=== PATIENT | female | born 1955 | race Caucasian/White ===

== ENCOUNTER 2016-09-28 05:23 | Inpatient (IN) | payer OTHER ==
[2016-09-28] VITALS (28 sets, daily range): BP systolic 113–160; BP diastolic 59–85; PULSE 68–90; RESP 15–22; Ht 157.5 cm; Wt 81.1 kg
[~2016-09-28] VITALS: Ht 157.5 cm; Wt 81.1 kg
[~2016-09-28 05:23] MED LIST: ARTHRITIS MED PO; CALC500T12 PO; CHOLESTEROL MED PO; OMEP40CA6 PO
[2016-09-28] MEDS ORDERED: CEFAZOLIN 2 GM/50 ML (PMX) 50 ML IVPB ONE (05:30)
[2016-09-28] MEDS ORDERED: LACTATED RINGER'S 1,000 ML IV* SCH (05:30)
[2016-09-28] MEDS ORDERED: POLYMYXIN/BACITRACIN 1L IRRIG ONE (06:50)
[2016-09-28] MEDS ORDERED: FLORICET (07:20)
[2016-09-28] MEDS ORDERED: RANI300T PO (07:20)
[2016-09-28] MEDS ORDERED: SIMV20TA PO (07:20)
[2016-09-28] MEDS ORDERED: CETI10TA34 PO (07:20)
[2016-09-28] MEDS ORDERED: CLINDAMYCIN 2% 40 GM VAG CR VAG SCH (07:30)
[2016-09-28] MEDS ORDERED: MIDAZOLAM 1 MG/ML 2 ML INJ ONE (07:38)
[2016-09-28] MEDS ORDERED: morphine SULFATE/PF (10 MG/10 ML) INJ ONE (07:38)
--- NOTE | 2016-09-28 07:50 | HPN ---
Date/Time of Note Date/Time of Note DATE: 09/28/16 TIME: 07:50 Interval H&P Admission Note Pt. seen H&P reviewed: No system changes KOJO GUPTA MD Sep 28, 2016 07:50
[2016-09-28] MEDS ORDERED: PHENYLephrine (100 MCG/ML) 5ML SYG ONE (08:06)
[2016-09-28] MEDS ORDERED: ONDANSETRON 4 MG INJ IV PRN ×2 (09:00→16:30)
[2016-09-28] MEDS ORDERED: MEPERIDINE 25 MG INJ IV PRN (09:00)
[2016-09-28] MEDS ORDERED: DIPHENHYDRAMINE 50 MG INJ IV PRN (09:00)
[2016-09-28] MEDS ORDERED: HYDROmorphONE (0.2 MG/ML) 10ML SYG IV PRN (09:00)
[2016-09-28] MEDS ORDERED: FENTAnyl 50 MCG/ML VIAL IV PRN (09:00)
[2016-09-28] MEDS ORDERED: LIDOCAINE 2%/EPI MPF (SDV) 20 ML VIAL INJ ONE (09:31)
[2016-09-28] MEDS ORDERED: ETOMIDATE 20 MG INJ ONE (10:11)
[2016-09-28] MEDS ORDERED: ROCURONIUM 50 MG INJ ONE (10:11)
[2016-09-28] MEDS ORDERED: LIDOCAINE 2% (SDV) 5 ML INJ ONE (10:11)
[2016-09-28] MEDS ORDERED: NEOSTIGMINE 3 MG/3 ML SYRINGE ONE (10:11)
[2016-09-28] MEDS ORDERED: CEFAZOLIN 1 GM INJ ONE (10:11)
[2016-09-28] MEDS ORDERED: GLYCOPYRROLATE 0.4 MG INJ ONE (10:11)
--- NOTE | 2016-09-28 10:23 | HP ---
Date/Time of Note Date/Time of Note DATE: 09/28/16 TIME: 07:59 Assessment/Plan VTE Prophylaxis VTE Prophylaxis Intervention: ambulation Lines/Catheters IV Catheter Type (from Nrsg): Peripheral IV Assessment/Plan Chief Complaint/Hosp Course uterine prolapse cystocele uterine fibroids Problems: Assessment/Plan vaginal hysterectomy anterioe repair poss christos bso HPI/ROS Admit Date/Time Admit Date/Time Sep 28, 2016 at 05:23 Hx of Present Illness 59 y.o who was admitted for vaginal hysterectomy and anterior repair for uterine prolapse and cystocele. menopaused since 2011, also diagnosed to have also uterine fibroids which was shown on recnt u/s on july this year. also informed patient that there is possibility that abdominal procedure in case of problem to perform through vagianl approach. risks and benifit in detail from minor to serious complications were informed , agreed to receive the surgical intervention ROS presuure symptoms on lower abdomen PMH/Family/Social Past Medical History Medical History: no pertinent history Past Surgical History Past Surgical Hx: no surgical history Social History Smoking Status: Never smoker Drug Use: none Exam/Review of Systems Vital Signs Vitals Vital Signs Date Time Temp Pulse Resp B/P Pulse Ox O2 Delivery O2 Flow Rate FiO2 09/28/16 07:21 97.5 72 18 127/85 98 Room Air Exam Exam uterine prolapse cystocele Medications Medications Current Medications Lactated Ringer's (Lr) 1,000 ml @ 125 mls/hr Q8H IV* ; Start 09/28/16 at 05:30 ; Stop 09/28/16 at 13:29 KOJO GUPTA MD Sep 28, 2016 08:09
[2016-09-28] MEDS: HYDROmorphONE (0.2 MG/ML) 10ML SYG IV PRN ×2 (12:52→13:09)
[2016-09-28] MEDS ORDERED: METOCLOPRAMIDE 10 MG INJ ONE (13:51)
[2016-09-28] MEDS ORDERED: METOCLOPRAMIDE 10 MG INJ IV PRN ×2 (14:00→21:00)
[2016-09-28] MEDS: IBUPROFEN 600 MG TAB PO PRN (16:39)
[2016-09-28] MEDS: DEXTROSE 5%-LR 1,000 ML IV SCH (16:48)
[2016-09-28] MEDS: DOCUSATE SODIUM 100 MG CAP PO SCH (21:00)
[2016-09-28] MEDS: OXYCODONE/ACETAMINOPHEN (5/325) TAB PO PRN (21:21)
[2016-09-29] MEDS: DEXTROSE 5%-LR 1,000 ML IV SCH ×4 (00:55→18:52)
[2016-09-29] MEDS: IBUPROFEN 600 MG TAB PO PRN ×3 (00:57→21:13)
[2016-09-29 01:03] VITALS: BP 129/63; PULSE 74
[2016-09-29 06:18] LABS: ADD SCAN DIFF NO
[2016-09-29 06:31] LABS: BASOPHILS % 0.1 % (0.0-2.0); EOSINOPHILS # 0.1 10^3/ul (0.0-0.5); EOSINOPHILS % 0.4 % (0.0-7.0); HEMOGLOBIN 12.5 g/dl (12.0-16.0); LYMPHOCYTES # 1.2 10^3/ul (0.8-2.9); LYMPHOCYTES % 10.6 % (15.0-51.0); MEAN CORPUSCULAR HEMOGLOBIN 30.1 pg (29.0-33.0); MEAN CORPUSCULAR HGB CONC 35.7 g/dl (32.0-37.0); MEAN CORPUSCULAR VOLUME 84.3 fl (82.0-101.0); MEAN PLATELET VOLUME 8.7 fl (7.4-10.4); MONOCYTE # 0.6 10^3/ul (0.3-0.9); MONOCYTES % 5.4 % (0.0-11.0); NEUTROPHIL # 9.5 10^3/ul (1.6-7.5); NEUTROPHILS % 83.2 % (39.0-77.0); PLATELET COUNT 202 10^3/UL (140-415); RED BLOOD COUNT 4.15 10^6/ul (4.20-5.40); RED CELL DISTRIBUTION WIDTH 12.1 % (11.5-14.5); WHITE BLOOD COUNT 11.5 10^3/ul (4.8-10.8)
[2016-09-29 07:35] VITALS: BP 127/61; RESP 19
[2016-09-29] MEDS: DOCUSATE SODIUM 100 MG CAP PO SCH ×2 (08:41→21:13)
[2016-09-29] MEDS: OXYCODONE/ACETAMINOPHEN (5/325) TAB PO PRN ×2 (08:41→18:53)
--- NOTE | 2016-09-29 09:59 | PN ---
Date/Time of Note Date/Time of Note DATE: 09/29/16 TIME: 09:55 Assessment/Plan Lines/Catheters IV Catheter Type (from Nrs): Peripheral IV Mccracken in Place (from Nrs): Yes Assessment/Plan Chief Complaint/Hosp Course uterine prolapse cystocele uterine fibroids Problems: Subjective 24 Hr Interval Summary s: passing flatus no more nausea tolerating liquid well O vss afebrile abdomen soft no significant vaginal bleeding A stable s/p vaginal hysterectomy and ant colporrhaphy P advance diet removal of mccracken cath vaginal packing removed Exam/Review of Systems Vital Signs Vitals Vital Signs Date Time Temp Pulse Resp B/P Pulse Ox O2 Delivery O2 Flow Rate FiO2 09/29/16 07:35 98.7 80 19 127/61 94 09/29/16 01:03 Nasal Cannula 1.0 Intake and Output 09/28/16 09/28/16 09/29/16 15:00 23:00 07:00 Intake Total 1350 ml 1865 ml Output Total 800 ml 900 ml 2550 ml Balance 550 ml -900 ml -685 ml Results Result Diagram: 09/29/16 0522 KOJO GUPTA MD Sep 29, 2016 09:59
[2016-09-29 21:00] VITALS: BP 132/63; RESP 19
[2016-09-30] MEDS: DEXTROSE 5%-LR 1,000 ML IV SCH ×4 (00:30→10:34)
[2016-09-30] MEDS: OXYCODONE/ACETAMINOPHEN (5/325) TAB PO PRN ×2 (02:59→10:28)
[2016-09-30 07:36] VITALS: BP 150/84; RESP 16
[2016-09-30] MEDS: DOCUSATE SODIUM 100 MG CAP PO SCH (09:21)
--- NOTE | 2016-09-30 14:22 | DS ---
Date/Time of Note Date/Time of Note DATE: 09/30/16 TIME: 14:13 Discharge Summary Admission/Discharge Info Admit Date/Time Sep 28, 2016 at 05:23 Discharge Date/Time September 30 2016 1415 Final Diagnosis uterine polapse uterine fibroid cystocele Patient Condition: Stable Consults none Procedures vaginal hysterectomy and ant repair Hx of Present Illness 59 y.o who was admitted for vaginal hysterectomy and anterior repair for uterine prolapse and cystocele. menopaused since 2011, also diagnosed to have also uterine fibroids which was shown on recnt u/s on july this year. also informed patient that there is possibility that abdominal procedure in case of problem to perform through vagianl approach. risks and benifit in detail from minor to serious complications were informed , agreed to receive the surgical intervention Hospital Course underwent vaginal hysterectomy and ant repair postoperatively had unevenful course voiding well scanty amount residual urine pain on lower back discharge home wih routine instructions return to office in 2mo Home Meds Reported Medications [Floricet] No Conflict Check 09/28/16 Simvastatin* (Zocor*) 20 Mg Tablet, 20 MG PO QHS, #30 TAB 09/28/16 Cetirizine Hcl* (Cetirizine Hcl*) 10 Mg Tab.chew, 10 MG PO DAILY, #30 TAB 09/28/16 Ranitidine Hcl* (Ranitidine Hcl*) 300 Mg Tablet, 300 MG PO HS, #30 TAB 09/28/16 [Arthritis Med] No Conflict Check, PO 07/15/15 [Cholesterol Med] No Conflict Check, PO 07/15/15 Omeprazole* (Omeprazole*) 40 Mg Capsule.dr, 40 MG PO DAILY, CAP 03/26/15 Discontinued Reported Medications Calcium Carbonate* (Oysco-500*) 1 Tab Tablet, 1 TAB PO DAILY, TAB 03/26/15 Follow-up Plan 2mo Primary Care Provider Omari Sanchez Time spent on discharge: < 30 minutes KOJO GUPTA MD Sep 30, 2016 14:22
--- NOTE | 2016-09-30 14:25 | PD.PPDC ---
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
[2016-09-30 15:00] VITALS: BP 142/66; PULSE 70
--- NOTE | 2016-10-02 13:14 | OPR ---
DATE OF OPERATION: 09/28/2016 PREOPERATIVE DIAGNOSES: Uterine prolapse, cystocele. POSTOPERATIVE DIAGNOSES: Uterine prolapse, cystocele. PROCEDURE: Vaginal hysterectomy, anterior repair. ANESTHESIA: General. ANESTHESIOLOGIST: Refer to the chart.. DESCRIPTION OF PROCEDURE: Under appropriate induction of general anesthesia, the patient was placed in the dorsal lithotomy position. Perineal area and vaginal wall were prepped and draped in the [facility] aseptic manner. On inspection, external genitalia revealed no gross abnormality except a visibl e cystocele which was large noted. Bimanual examination of uterus felt to be approximately 6 to 8 _ ___ with a firm in consistency and irregular surface which is suggesting fibroid uterus. Weighted s peculum introduced. Cervix was identified, which was a small and the anterior vaginal wall, vaginal mucosa was firmly adherent to the cervix, possibly due to the external of the bladder makes the vag inal mucosa thickened. There was not much cervix left because the bladder was ____ down to the cerv ix. Circumferential incision was made on the cervical vaginal ____ on the vaginal epithelium which was very difficult due to the danger of injuring the bladder. Circumferential incision was made and the anterior vaginal mucosa was from the cervix, which was rather deep, deeper than the p ruthy plane. After the dissection of the bladder from the cervix, it was noticed that it was not th e right plane. At this point, posteriorly, vaginal mucosa was incised and then dissected from the c ervix and the peritoneal reflection posteriorly was identified which was incised and the posterior c ul-de-sac was entered. A Elisa weighted speculum was introduced into the posterior cul-de-sac and the uterosacral ligament on each side was clamped and cut, ligated with a #1 chromic catgut and then further trial of dissection of the anterior vaginal mucosa, still struggling to find the right plan e, and further clamping on the cardinal ligament on each side was done which was clamped and cut, tr ansfixed with buried #1 chromic catgut in ____ manner. Then the uterine vessel on each side was cla mped and cut, ligated with the #1 chromic catgut. As it was troubling to find the right plane and t he finger on the posterior cul-de-sac through the anterior and found the peritoneal reflection anter ior which was entered and the incision extended, and the Elisa retractor was inserted. Then furthe r clamping on broad ligaments and round ligaments on each side, clamped and cut, ligated with a #1 c hromic catgut. At this point, the fundus was grasped and delivered out ____ ligaments ____ pedicle was clamped and cut on each side and ____ fibroid, an especially large one, approximately 3 cm in di ameter on the anterior fundal area. The uterus and cervix were removed from the operative field. The pedicle was transfixed with #1 chromic catgut on each side. Additional suture was placed distal to the primary ligature, which was held for the next procedure. Earlier on the uterosacral ligamen t, also the suture was left long, and tagged with a Susana clamp and left long on each side for the n ext procedure to perform the vaginal vault suspension. Then the ____ of the pedicle was done using 0 chromic catgut in pursestring manner, clockwise. ____ complete closure of the peritoneum and th e vaginal mucosa ____ held with Allis clamp. ____, the ____ ligament ____ pedicle which was held wi th 0 chromic catgut suture was brought out through the vaginal mucosa laterally and the uterosacral ligaments also tagged with suture which was left long earlier and brought out through the lateral si de of the vaginal vault on each side. Then, these 2 sutures were tied together and brought out the vault and suspended and then anterior vaginal mucosa was held with a multiple Allis clamps and disse cted from the bladder ____ and anterior vaginal mucosa was completely from the bladder and the bladder base was from the mucosa. ____uterovesical angle below the uterovesical angl e then 2-0 Vicryl using ____ suture was placed at an angle by bringing up the perivesical fascia in the middle and then the rest of the perivesical fascia was covered by using pursestring manner, the entire cystocele was reduced. The redundant anterior vaginal mucosa was excised and this mucosa was closed with the 2-0 chromic catgut in continuous manner ____ vaginal apex. Then starting from the lateral corner, another suture started, closing the vaginal cuff using 0 chromic catgut in continuou s manner. Brown catheter was checked with drained the clear urine, approximately 400 mL and the vag inal packing soaked with 2% Cleocin cream inserted ____ tamponade. The ____ was completed. Instrum ent and sponge counts ____ correct and needle count correct. Estimated blood loss was approximately 50 mL. The patient ____ procedure well, sent to the recovery room in stable condition. Dictated By: RITCHIE MUNIZ/COLLIN Conf#: [id number] DID#: [id number]
== END 2016-09-30 15:00 | disposition home or self-care (01) | DRG 743 ==
LOC: REC 05:23 → EDSTATUS 07:30 → MS2 15:20
PROVIDERS: ADMIT Obstetrics & Gynecology; ATTEND Obstetrics & Gynecology
PROC: 0UTC7ZZ Resection of Cervix, Via Natural or Artificial Opening (ICD-10-PCS; 2016-09-28)
PROC: 0UT97ZZ Resection of Uterus, Via Natural or Artificial Opening (ICD-10-PCS; principal; 2016-09-28 07:30)
PROC: 0JQC3ZZ Repair Pelvic Region Subcutaneous Tissue and Fascia, Percutaneous Approach (ICD-10-PCS; 2016-09-28 07:30)
DX: N81.4 Uterovaginal prolapse, unspecified (principal); D25.1 Intramural leiomyoma of uterus
CPT/HCPCS: 85025; 86850; 86900; 86901; 86920; 87086; 88305; J0690; J1170; J2250; J2274; J2370; J2405; J2710; J2765; J3010; J7121

== ENCOUNTER 2017-08-15 09:09 | Day surgery (SDC) | END 2017-08-15 11:41 | disposition home or self-care (01) ==